=== PATIENT | female | born 1995 | race Hispanic/Latino ===

== ENCOUNTER 2022-07-04 08:47 | Emergency (ER) | payer OTHER ==
[2022-07-04 09:02] VITALS: BP 147/83
[2022-07-04] MEDS ORDERED: ACETAMINOPHEN 325 MG TAB PO ONE (10:00)
[2022-07-04] MEDS ORDERED: SOLU-MEDROL 125MG VIAL IVP ONE (10:30)
[2022-07-04] MEDS ORDERED: METH4TAB3 PO (12:24)
== END 2022-07-04 12:33 | disposition home or self-care (01) ==
LOC: EDH 08:47
DX: S52.501A Unspecified fracture of the lower end of right radius, initial encounter for closed fracture (principal); K59.00 Constipation, unspecified; V89.2XXA Person injured in unspecified motor-vehicle accident, traffic, initial encounter; Y93.89 Activity, other specified; Y92.89 Other specified places as the place of occurrence of the external cause; Y99.8 Other external cause status
CPT/HCPCS: 99285; 74176; 96374; 71045; 81025; 73100; 73060; J2930